=== PATIENT | female | born 1955 | race Caucasian/White ===

== ENCOUNTER → 2017-03-02 | Outpatient (CLI) | payer OTHER ==
[~2017-03-02] MED LIST: ABILIFY MAINTE400 MG IM; AMLODIPINE BESYL5 M1 PO; ATORVASTATIN CA20 MG PO; BENZTROPINE MES1 MG PO; FISH OIL 1,001000 M2 PO; FLOMAX0.4 MG PO; GLUCOPHAGE XR500 MG PO; IBUPROFEN 600600 M1 PO; KETOCONAZOLE60 GM; KLOR-CON 1010 MEQ PO; LANTUS100 UNIT/M SUBQ; LEVOTHYROXIN0.075 MG PO; LISINOPRIL5 MG PO; LOTRISONE CREAM15 GM; LOXAPINE10 MG PO; LOXAPINE50 MG PO; MOM PO; NIZORAL120 ML; OYST-CAL-500500 MG PO; SAPHRIS5 MG SL; SENOKOT-S1 TA1 PO; TYLENOL325 MG PO; UNICOMPLEX M TA1 TA1 PO; VITAMIN D1000 UNI1 PO; ZINC OXIDE57 GM
== END ==
LOC: RAD 02:53
DX: Z12.31 Encounter for screening mammogram for malignant neoplasm of breast (principal)